=== PATIENT | male | born 1955 | race Caucasian/White ===

== ENCOUNTER → 2017-02-18 | Day surgery (SDC) | payer BC ==
--- NOTE | 2017-02-17 14:58 | MH ---
cc: Stefania CASH M.D. DATE OF ADMISSION: 02/18/2017 ADMISSION DIAGNOSIS Torn medial meniscus right knee, now for arthroscopy right knee. HISTORY OF PRESENT ILLNESS This is a pleasant 61-year-old male, known diabetic who is being admitted today for arthroscopy right knee due to torn medial meniscus. PAST MEDICAL HISTORY Other past history other than the diabetes, he has hypertension. MEDICATIONS Current medications include: 1. Metformin. 2. Lisinopril. 3. Simvastatin. 4. Tramadol for pain. SOCIAL HISTORY He does not smoke or drink. ALLERGIES PENICILLIN, MOTRIN AND ASPIRIN. REVIEW OF SYSTEMS Noncontributory. FAMILY HISTORY Noncontributory. PHYSICAL EXAMINATION GENERAL: We find a 61-year-old male, well-developed, well-nourished, oriented x3, complaining of pain in his right knee. VITAL SIGNS: Blood pressure 110/62, pulse 71 and regular, respirations 16, temperature 98.4, pulse oximetry 98% on room air. HEENT: Eyes PERRLA, EOMI. Ears, nose, mouth clear. NECK: Supple. LUNGS: Clear. HEART: Regular rate. ABDOMEN: Soft. Positive bowel sounds, nontender. EXTREMITIES: Reveals the right knee to be tender over the medial joint surface. He does have an effusion. He is neurovascularly intact to his toes. MRI did reveal a torn medial meniscus and effusion of his right knee. PLAN Admission for arthroscopy right knee today. The patient given prescription for postoperative pain control in the office. He understands the use of Hibiclens scrub and Bactroban preoperatively and has appointment to follow up in the office as well. Stefania Cash MD JRRody/TLL /2:31 PM /2:47 PM
[~2017-02-18] VITALS: Ht 180.3 cm; Wt 98.3 kg
[~2017-02-18] MED LIST: *morphine SULFATE 8 MG/ML PERIprocedure ONLY ONE; ACETAMINOPHEN 1000 MG/100 ML 100 ML IV ONE; ACETAMINOPHEN/HYDROcodone 325 MG/5 MG TAB PO PRN; BUPIVACAINE HCL PF 0.25% 30 ML VIAL ONE; CENTCHW4 CHEW; CHLORHEXIDINE GLUCONATE 2 % 1 PACK (2 CLOTHS) TOPICAL PRN; CLINDAMYCIN INJ 900 MG in SODIUM CHLORIDE 0.9% INJ 100 ML IV SCH; DEXAMETHASONE SOD PHOS 4 MG/ML VIAL IV ONE; DEXAMETHASONE SOD PHOS 4 MG/ML VIAL ONE; DO NOT ADM ANY ANTICOAGULANT DRUGS PRN; FAMOTIDINE 20 MG/2 ML VIAL ONE; INSULIN HUMAN REGULAR 1,000 UNITS/10 ML VIAL SQ PRN; LACTATED RINGER'S 1000 ML IV PRN; LIDOCAINE HCL 1% PF 5 ML AMPULE OTHER ONE; LISI10TA3 PO; MEPERIDINE HCL 50 MG/ML VIAL IM PRN; METF1000 PO; METF500T PO; METOPROLOL TARTRATE 25 MG TAB PO PRN; MIDAZOLAM HCL 2 MG/2 ML VIAL IV ONE; OMEP20TA PO; ONDANSETRON HCL 4 MG/2 ML VIAL IV PUSH ONE; ONDANSETRON ODT 4 MG TAB PO PRN; POVIDONE IODINE 5% (ANTISEPSIS KIT) 4 APPLICATIONS EACH NARE PRN; PROPOFOL 200 MG/20 ML AMP IV ONE; SIMV40TA PO; SODIUM CHLORID 0.9% 500 ML IV PRN; SODIUM CHLORIDE 0.9% INJ 100 ML ONE
[2017-02-18 07:07] LABS: AUTOMATED NEUTROPHIL # 3.7 TH/MM3 (1.8-7.7); BASOPHIL % 0.5 % (0.0-2.0); EOSINOPHIL # 0.1 TH/MM3 (0-0.4); EOSINOPHIL % 1.7 % (0.0-4.0); HEMATOCRIT 43.1 % (39.0-51.0); HEMO FLAGS DIFF FINAL; LYMPH % 42.2 % (9.0-44.0); LYMPHOCYTE # 3.1 TH/MM3 (1.0-4.8); MEAN CORPUSCULAR HEMOGLOBIN 31.2 PG (27.0-34.0); MEAN CORPUSCULAR HGB CONC 34.3 % (32.0-36.0); MONO % 6.2 % (0.0-8.0); NEUT % 49.4 % (16.0-70.0); PLATELET COUNT 130 TH/MM3 (150-450); RED BLOOD COUNT 4.74 MIL/MM3 (4.50-5.90); RED CELL DISTRIBUTION WIDTH 13.4 % (11.6-17.2); WHITE BLOOD COUNT 7.4 TH/MM3 (4.0-11.0)
[2017-02-18 07:20] LABS: POTASSIUM 4.3 MEQ/L (3.5-5.1)
--- NOTE | 2017-02-18 09:13 | HHI.PR ---
Immediate Post Op Note Procedure Date: Feb 18, 2017 Pre Op Diagnosis: Torn medial meniscus right knee, Post Op Diagnosis: Torn medial meniscus right knee, Chondromalacia Surgeon: Stefania Cash MD Research Laboratory Technician(s): Haydee SOLORIO Procedure: Right knee arthroscopy Complications: none Specimen(s) removed: none Estimated blood loss: 10cc Anesthesia: General Drains: None IVF Urinary Output (mLs): 0 (no hernandez) Tourniquet time (min at mmHg) none Patient to: PACU Patient Condition: Good Implant/Devices: SEE IMPLANT LOG (if applicable) Date/Time of Procedure: SEE SURGICAL CARE RECORD Haydee Mckinley Feb 18, 2017 09:13
--- NOTE | 2017-02-18 09:34 | MP ---
cc: Stefania FELICIANO M.D. DATE OF SURGERY 02/18/2017 PREOPERATIVE DIAGNOSIS Internal derangement right knee. POSTOPERATIVE DIAGNOSIS Torn medial meniscus, chondromalacia grade 3 medial compartment and synovitis and effusion. SURGERY PERFORMED Arthroscopy right knee with excision of torn medial meniscus, chondroplasty medial compartment and partial synovectomy, right knee. SURGEON Dr. Feliciano [facility] LYNDSEY Lee ANESTHESIA LMA PROCEDURE The patient was brought to the operating room and placed on the operating room table in the supine position. After successful induction of general anesthesia, the patient's right leg was prepped and draped in the usual manner. The knee was then placed in a knee bill and tightened. Arthroscopic examination was then performed by making a stab wound over the proximal superior and medial aspect of the patellofemoral joint for insertion of the inflow cannula and fluid, followed by stab wounds over the medial and lateral joint margins respectively for insertion of the arthroscope, shaver and probe. Arthroscopic examination was then performed which revealed a large tear of the medial meniscus involving the main body and posterior horn, removed using the ArthroCare, cutter, shaver and probe to afford a smooth surface. Chondromalacia grade 3 noted of the medial compartment both femoral and tibial surfaces, shaved smooth using the ArthroCare system to afford smooth surface. 60 cc of serous fluid was removed from the knee joint at the start of the case as well. The anterior cruciate was found to be intact. The lateral compartment was found to be intact. The patellofemoral joint was found to be intact. The wound was irrigated copiously with lactated Ringer's solution. Excess fluid was removed and 12 cc of 0.25% Marcaine plain and 2 cc of Decadron were inserted into the knee joint. The skin was approximated with interrupted 3-0 nylon suture. Wet and then dry dressing was applied to the wound followed by Xeroform gauze, sterile dressing and thigh-high Perry wrap. TOURNIQUET TIME No tourniquet utilized. ESTIMATED BLOOD LOSS 10 cc. COUNTS Sponge and suture counts were correct. The patient tolerated the procedure well and left the operating room in satisfactory condition. LYNDSEY Lee, was present during the entire procedure to include patient positioning and the procedure. The medical necessity of the nurse practitioner assistant facility manager was indicated in this case due to the surgical complexity of the case itself. During the surgical case the rn neurosurgical was working the back table while my surgical instrument maker LYNDSEY was directly assisting me. J. MD MERNA Gibbs/SSB /9:13 AM /9:25 AM
[2017-02-18 10:40] VITALS: BP 113/69; PULSE 65; RESP 16; TEMP 97.8; O2SAT 99
--- NOTE | 2017-02-18 14:40 | EKG ---
Date Performed: 02/18/2017 Time Performed: 06:53:09 PTAGE: 61 years EKG: SINUS BRADYCARDIA MARKED LEFT AXIS DEVIATION PATTERN CONSISTENT WITH PULMONARY DISEASE MINI MAL VOLTAGE CRITERIA FOR LVH, CONSIDER NORMAL VARIANT ABNORMAL ECG NO PREVIOUS TRACING DOCTOR: Johnson Irene Interpretating Date/Time 02/18/2017 14:36:19
== END | disposition home or self-care (01) ==
LOC: HSDC 05:48
PROVIDERS: ATTEND Surgery
DX: M23.221 Derangement of posterior horn of medial meniscus due to old tear or injury, right knee (principal); I10 Essential (primary) hypertension; E11.9 Type 2 diabetes mellitus without complications; M94.20 Chondromalacia, unspecified site; M65.9 Synovitis and tenosynovitis, unspecified; M25.461 Effusion, right knee; Z79.84 Long term (current) use of oral hypoglycemic drugs; Z01.810 Encounter for preprocedural cardiovascular examination; Z01.818 Encounter for other preprocedural examination
CPT/HCPCS: 01400; 29881; 80051; 85025; 93005; J0131; J1100; J2250; J2270; J2405; J3010; J7120